=== PATIENT | female | born 1950 | race Caucasian/White ===

== ENCOUNTER 2016-12-24 07:30 | Inpatient (IN) | payer MEDICARE, BC ==
--- NOTE | 2016-12-18 11:08 | HP ---
PREOPERATIVE HISTORY AND PHYSICAL: DATE OF ADMISSION/SURGERY: 12/24/16 DATE OF OFFICE VISIT: 12/16/16 ATTENDING SURGEON: Dr. Edilson Mayer * (DICTATED BY STORMY HORTON) PROCEDURE: Right total shoulder reverse. CHIEF COMPLAINT: Right shoulder pain. HISTORY OF PRESENT ILLNESS: Dali is a 66-year-old female who presents to the clinic for right shoulder pain due to severe osteoarthritis. She has failed conservative measures and states that it limits her activity and she has consistent pain. Therefore, she has agreed to undergo a right total shoulder reverse with Dr. Mayer on 12/24/16. PAST MEDICAL HISTORY: Hypertension, asthma, GERD, depression, anxiety, Zaragoza' s esophagus and high cholesterol. PAST SURGICAL HISTORY: Ovarian cystectomy, cholecystectomy, right wrist surgery , right shoulder surgery. Denies prior complications with anesthesia. MEDICATIONS: 1. Celebrex 100 mg 1 tab by mouth twice a day as needed. 2. Losartan potassium 50 mg 1 by mouth daily. 3. Atorvastatin calcium 10 mg 1 by mouth daily. 4. Montelukast sodium 10 mg 1 by mouth daily. 5. Lansoprazole 30 mg 1 by mouth daily. 6. Dulera 200/5 mcg/act daily. 7. QNASL 80 mcg/act daily. 8. EpiPen 2-Nura 0.3 mg/0.3 mL use as directed. 9. ProAir HFA 108/90 mcg/act 2 puffs by mouth every 4 hours as needed. 10. Zantac 150 mg take 1 by mouth twice a day as needed. 11. Probiotic 1 by mouth daily. 12. Calcium, zinc and B12 daily. ALLERGIES: KEFLEX and HYOSCYAMINE. FAMILY HISTORY: Positive for sister with asthma and father with heart disease. Denies family history of DVT or PE. SOCIAL HISTORY: She lives with her spouse. She is retired. She is a former smoker and quit in 1982. She reports occasional alcohol consumption. REVIEW OF SYSTEMS: A 14-point review of systems was reviewed with the patient. Positive for current complaint, GERD and hypertension. Otherwise, negative. Denies chest pain or shortness of breath. Denies fever or chills. Denies history of bleeding disorders. Denies history of DVT or PE. PHYSICAL EXAMINATION GENERAL: Well-developed, well-nourished 66-year-old female, in no acute distress. Alert and oriented x3. Appropriate mood and affect. VITAL SIGNS: Height 62, weight 133, pulse 82, blood pressure 132/77, respiratory rate 14, temperature 97.5, BMI 24.3. HEENT: Normocephalic, atraumatic. PERRLA. Throat: Clear. NECK: Supple. LUNGS: Clear to auscultation bilaterally. No wheezing, rhonchi, or rales. CARDIO: Regular rate and rhythm. S1, S2. No murmurs, gallops, or rubs. No edema. ABDOMEN: Positive bowel sounds, soft, and nontender. NEURO: Alert and oriented x3. Cranial nerves grossly intact. Sensation is intact to light touch. MUSCULOSKELETAL: Right upper extremity, skin is intact. No warmth or erythema. Tenderness above the anterior joint line. Forward flexion is 70, abduction 80, passive forward flexion 140, external rotation is at 30 degrees, internal rotation to lateral hip. Weakness with rotator cuff testing. +2 radial pulse. Sensation is intact to light touch distally. DIAGNOSTIC STUDIES: Multi-view x-rays of the right shoulder revealed mild osteoarthritis with significant superior migration of the humeral head. IMPRESSION: Right shoulder osteoarthritis with rotator cuff arthropathy. PLAN: Dali is a 66-year-old female who is scheduled to undergo a right total shoulder reverse with Dr. Mayer on 12/24/16. She will return to the office 10 to 14 days postop for followup and suture removal. Percocet was sent to the patient's pharmacy for postop pain management. STORMY HORTON [id number]/[facility] #: [id number] MTDAnel
--- NOTE | 2017-01-16 11:32 | HP ---
AMENDED REPORT NOW INCLUDES COSIGNER DESIGNATION - ESIGNED BEFORE ADJUSTMENT PREOPERATIVE HISTORY AND PHYSICAL UPDATE: DATE OF SURGERY: 01/21/17. ATTENDING SURGEON: Edilson Mayer MD * (DICTATED BY STORMY HORTON) PROCEDURE: Right total shoulder reverse. CHIEF COMPLAINT: Right shoulder pain. HISTORY OF PRESENT ILLNESS: Dali is a 66-year-old female who presents to the clinic for right shoulder pain due to severe osteoarthritis. She failed conservative measures and therefore agreed to undergo a right total shoulder reverse with Dr. Mayer on 01/21/17. She was previously scheduled on December 24, 2016; however, her surgery for was cancelled due to an illness. She has recently seen her PCP and has been cleared for surgery. She is feeling well now , denies fever, chills. PAST MEDICAL HISTORY: Hypertension, asthma, GERD, depression, anxiety, Zaragoza' s esophagus, high cholesterol. PAST SURGICAL HISTORY: Ovarian cystectomy, cholecystectomy, right wrist surgery , right shoulder surgery. Denies denies prior complication with anesthesia. MEDICATIONS: 1. Losartan potassium 50 mg 1 by mouth daily. 2. Atorvastatin calcium 10 mg 1 by mouth daily. 3. Montelukast sodium 10 mg 1 by mouth daily. 4. Lansoprazole 30 mg 1 by mouth daily. 5. Dulera 200/5 mcg/act 1 puff daily. 6. QNASL 80 mcg/act daily. 7. EpiPen 2-Nura 0.3 mg/0.3 mL use as directed. 8. ProAir HFA 108 mcg/act 2 puffs every 4 hours as needed. 9. Zantac 150 one by mouth twice a day as needed. 10. Probiotic 1 by mouth every day. 11. Calcium 1 by mouth daily. 12. Zinc 1 by mouth daily. 13. Vitamin B12 one by mouth daily. 14. Lexapro 100 mg 1 by mouth twice a day. ALLERGIES: KEFLEX, HYOSCYAMINE, clams. FAMILY HISTORY: Positive for asthma, heart disease. Denies family history of DVT or PE. SOCIAL HISTORY: She lives with her spouse. She is retired. She is a former smoker, quit in 1982. She reports occasional alcohol consumption. REVIEW OF SYSTEMS: A 14-point review of systems was reviewed with the patient. Positive for current complaint. Otherwise negative. Denies fever, chill, night sweat, chest pain, shortness of breath. Denies history of bleeding disorder. Denies history of DVT or PE. PHYSICAL EXAMINATION GENERAL: A 66-year-old well-developed, well-nourished female in no acute distress. Alert and oriented x3 with appropriate mood and affect. VITAL SIGNS: Height 62, weight 135, pulse 78, blood pressure 118/72, respiratory rate 14, temperature 98.5, BMI 24.7. HEENT: Normocephalic, atraumatic. PERRLA. NECK: Supple. Throat clear. PULMONARY: Lungs clear to auscultation bilaterally. No wheezing, rhonchi or rales. CARDIO: Regular rate and rhythm, S1 and S2. No murmurs, gallops or rubs. No edema. ABDOMEN: Positive bowel sounds, soft, nontender. NEUROLOGIC: Alert and oriented x3. Cranial nerves are grossly intact. Sensation is intact to light touch. MUSCULOSKELETAL: Right upper extremity, skin is intact. No warmth or erythema. Tenderness over the anterior joint line. Forward flexion 70, abduction 80, passive forward flexion 140, external rotation to 30, internal rotation to the lateral hip. Weakness with rotator cuff testing. +2 radial pulse. Sensation is intact to light touch distally. DIAGNOSTIC STUDIES: Multi-view x-rays of the right shoulder revealed mild osteoarthritis with superior migration of the humeral head. CT was also done that revealed the same thing. IMPRESSION: Right shoulder osteoarthritis with rotator cuff arthropathy. PLAN: Dali is a 66-year-old female who is scheduled to undergo a right total shoulder reverse with Dr. Mayer on 01/21/17. She has had a recent illness and therefore, had to cancel surgery before, but has been cleared by her PCP. Her CT of the shoulder revealed a chest mass. Her PCP states she is stable for surgery and he will order further imaging after surgery to further investigate the chest mass. She will return to the office in 10 to 14 days postop to follow up for suture removal. Percocet was sent to the patient's pharmacy for postop pain. STORMY HORTON [id number]/[facility] #: [id number] [facility]ENTER[facility]el
[2017-01-20] MEDS ORDERED: Buffered Lidocaine 0.9% SYRIN* 5 ML/SYR SYRINGE INTRADERM ONE (14:54)
[2017-01-21] MEDS ORDERED: Famotidine IV* 10 MG/ML 2 ML (20 mg) IV ONE (06:00)
[2017-01-21] MEDS ORDERED: Gabapentin CAP(*) 300 MG PO ONE (06:00)
[2017-01-21] MEDS ORDERED: Buffered Lidocaine 0.9% SYRIN* 5 ML/SYR SYRINGE ONE (06:08)
[2017-01-21] MEDS ORDERED: Gabapentin CAP(*) 300 MG ONE (06:08)
[2017-01-21] MEDS ORDERED: Clindamycin 900 MG IVPREMIX(* 900 MG/50 ML SDV IV ONE (06:08)
[2017-01-21] MEDS ORDERED: Famotidine IV* 10 MG/ML 2 ML (20 mg) ONE (06:08)
[2017-01-21] MEDS ORDERED: Lidocaine 2% PF * 5 ML VIAL ONE ×2 (07:18→08:23)
[2017-01-21] MEDS ORDERED: ROPIVACAINE 5 MG/ML 30 ML BTL (0.5%) ONE (07:18)
[2017-01-21] MEDS ORDERED: Ketorolac INJ* 30 MG/ML 1 ML VIAL ONE (08:23)
[2017-01-21] MEDS ORDERED: Propofol* 10 MG/ML 20 ML BTL IV PUSH ONE (08:23)
[2017-01-21] MEDS ORDERED: Ondansetron INJ* 2 MG/ML VIAL ONE (08:23)
[2017-01-21] MEDS ORDERED: Succinylcholine* 20 MG/ML 10 ML VIAL ONE (08:23)
[2017-01-21] MEDS ORDERED: DiMENhydriNATE IV* 50 MG/ML VIAL ONE (08:23)
[2017-01-21] MEDS ORDERED: Dexamethasone IV* 4 MG/ML 1 ML (4 MG) ONE (08:23)
[2017-01-21] MEDS ORDERED: EPHEDrine (Pressors)* 50 MG/ML VIAL ONE (08:32)
[2017-01-21] MEDS ORDERED: Phenylephrine IV* 40 MCG/ML 10 ML SYRINGE ONE (08:32)
[2017-01-21] MEDS ORDERED: Rocuronium* 10 MG/ML VIAL ONE (09:13)
[2017-01-21] MEDS ORDERED: DiMENhydriNATE IV* 50 MG/ML VIAL IV PUSH PRN (09:23)
[2017-01-21] MEDS ORDERED: Gabapentin CAP(*) 100 MG PO ONE (09:24)
[2017-01-21] MEDS ORDERED: Polyethylene Glycol 3350* 17 GM PACKET PO PRN (10:18)
[2017-01-21] MEDS ORDERED: Bisacodyl SUPP* 10 MG SUPP PR PRN (10:18)
[2017-01-21] MEDS ORDERED: Ondansetron TAB* 4 MG PO PRN (10:18)
[2017-01-21] MEDS ORDERED: Ondansetron INJ* 2 MG/ML VIAL IV PRN (10:18)
[2017-01-21] MEDS ORDERED: Morphine INJ* 2 MG/ML 1 ML SYRINGE (TWO MG - NEW SYRINGE VERSION) IV PRN (10:18)
[2017-01-21] MEDS ORDERED: oxyCODONE/Acetamin 5/325 MG* TAB PO PRN (10:18)
[2017-01-21] MEDS ORDERED: diPHENhydraMINE PO* 25 MG PO PRN (10:18)
[2017-01-21] MEDS ORDERED: Acetaminophen TAB* 325 MG PO PRN (10:18)
[2017-01-21] MEDS ORDERED: oxyCODONE TAB* 5 MG TAB PO PRN (10:18)
[2017-01-21] MEDS ORDERED: Magnesium Hydroxide LIQ* 30 ML UDC PO PRN (10:18)
[2017-01-21] MEDS ORDERED: diPHENhydraMINE IV* 50 MG/ML 1 ml VIAL (BENADRYL) IV PRN (10:18)
[2017-01-21] MEDS ORDERED: Temazepam CAP* 15 MG PO PRN (10:18)
[2017-01-21] MEDS ORDERED: Albuterol HFA INHALER* 8 gm MDI INH PRN (10:25)
[2017-01-21] MEDS ORDERED: Gabapentin CAP(*) 100 MG ONE (11:13)
[2017-01-21] MEDS: oxyCODONE/Acetamin 5/325 MG* TAB PO PRN ×4 (11:15→22:24)
[2017-01-21] MEDS: HYDROmorphone INJ* 1 MG/ML CARPUJECT SYRINGE IV PRN ×2 (11:19→11:28)
--- NOTE | 2017-01-21 11:39 | RAD ---
Indication: Postop RIGHT shoulder reverse glenohumeral joint prosthesis placement. Comparison: August 04, 2016 radiographs. Technique: Internal rotation AP, external rotation Grashey, scapular Y, axillary views RIGHT shoulder Report: Reverse glenohumeral joint prosthesis in place and located without evidence for periprosthetic fracture. Normal acromioclavicular joint alignment. Surgical drain at the glenohumeral joint. Overlying soft tissue edema and subcutaneous emphysema. IMPRESSION: Unremarkable immediate postop follow-up following RIGHT glenohumeral joint replacement.
--- NOTE | 2017-01-21 15:56 | OP ---
CC: Primary Care Physician, Mateusz Church MD * DATE OF OPERATION: 01/21/17 - ROOM #[id number] DATE OF : 52 SURGEON: Edilson Mayer MD ASSISTANTS: STORMY Ochoa, and STORMY Bee. ANESTHESIOLOGIST: Dr. Conrad. ANESTHESIA: General with interscalene block. PRE-OP DIAGNOSIS: Right shoulder rotator cuff arthropathy. POST-OP DIAGNOSIS: Right shoulder rotator cuff arthropathy. OPERATIVE PROCEDURE: 1. Right reverse shoulder arthroplasty. 2. Open biceps tenodesis. IMPLANTS USED: Diaz 36 mm glenosphere with SR base plate, size 14 stem with standard head and neck and a size 6 poly. COMPLICATIONS: None. ESTIMATED BLOOD LOSS: 150 cc. OUTPUT DRAINS: Intraarticular x1. INDICATIONS: Dali Ponce is a 66-year-old female who has had chronic rotator cuff tear arthropathy. She has failed conservative management. She has elected to proceed with operative treatment. Risks and benefits of surgery were discussed at length and included, but are not limited to bleeding, infection, damage to nerves, vessels, surrounding structures, wound nonhealing, persistent pain, need for surgery, scarring, stiffness, incomplete relief of symptoms and risks of anesthesia, as well as risk of fracture, dislocation and risk of DVT. After obtaining preoperative medical risk assessment, she has elected to proceed with surgery. DESCRIPTION OF PROCEDURE: The patient was greeted in the preoperative area by the attending surgeon. Correct extremity was marked and consent was confirmed. The patient then underwent interscalene nerve block by the anesthesiologist, after which she was brought back to the operating suite. She was placed in supine position on the operating table. She then underwent general anesthesia and endotracheal intubation, after which [facility] position with all bony prominences padded. She was well secured to the bed. The right shoulder was then prepped and draped in the usual sterile fashion beginning with chlorhexidine soap, scrub and alcohol wipe and a final prep of ChloraPrep. After appropriate surgical pause indicating side, site, procedure and administration of antibiotics, the deltopectoral incision was made sharply with 15- blade. Soft tissues were carefully dissected to expose the cephalic vein which was taken laterally with the deltoid. The deltopectoral interval was then exposed, trackers were used to expose clavipectoral fascia. The short head of the biceps was identified and the lateral border was excised and CA ligament was released. The soft tissue was carefully mobilized. The pec incision was identified and the proximal 1.5 cm were released. The biceps was identified and then using a nonabsorbable stitch, this was tenodesed to the pec tendon. The biceps was then tenotomized and followed along the groove proximally , the subscap was identified and released in subscap peel fashion. The #5 Ethibond suture was used to tack this with retraction and the subscap was fully released. The 3 sutures were ligated. The capsule and the neck were carefully exposed. The soft tissues were carefully elevated. The head was gently dislocated through the wound. There was grade 4 change to humeral head as well as evidence of a massive rotator cuff tear of supraspinatus tendon. The neck cut was free handed and was slightly steep. Attention was then directed to the glenoid. The humerus was pushed back into the wound and retractors were placed around the glenoid. Posterior retractor was placed. The subscap was identified. The superior middle glenohumeral ligaments were then released. The inferior glenohumeral ligament was released too. The subscap was carefully mobilized. The glenoid nerve retractor was then used to help retract and expose the anterior soft tissues. There were grade 4 changes to the glenoid. The anterior and posterior superior labrum were carefully removed using electrocautery device. The inferior labrum was carefully removed with tension on soft tissues to expose the neck with care to not provide any iatrogenic nerve injury. The Castro was used to remove any of the excess cartilage off the glenoid. Once this was done, the guidewire was placed inferiorly in the glenoid. The reamer was used to ream the glenoid. The SR drill bit was then used to drill the center peg. The final implant was chosen and impacted carefully into position. Once it was fully seated, 2 interlocking screws of the appropriate length were then drilled. The final 36 mm head was then impacted into position and secured with the set screw. Attention was then directed to the humerus. The humerus was brought through the wound again. The center canal finder was used, a size 14 was found to fit appropriately into the canal with excellent purchase. The trial to center the humeral reamer was then placed. The reamer was then used to ream the bone to help position for the inlay prosthesis. Once this was done, the final implant was assembled on the back table and packed it into position. The trial spacer was then used to trial the shoulder. The shoulder was then gently reduced and taken through range of motion, able to forward flex to about 155, abduct to 90, externally rotate to about 55 degrees. Appropriate amount of shuck was identified and there was no evidence of dislocation. It appeared to be a good fit. At this point, the final implant was chosen. The poly was impacted into position and reduced. The shoulder was taken through range of motion and found to be stable. The wounds were copiously irrigated with sterile saline. The subscap was closed in a horizontal mattress configuration using #5 Ethibond that were pre- drilled into the humerus. The wounds were copiously irrigated again. The deltopectoral incision was closed with #2 Ethibond and then the wounds were irrigated again. The skin was closed in layers with 2-0 Vicryl and 3-0 Monocryl. Sterile dressings, Cryo/ Cuff, and UltraSling were applied. She was awoken from anesthesia and transferred to the PACU in stable condition. POSTOPERATIVE PLAN: She will be nonweightbearing for 6 weeks. She will be admitted to the hospital for 24 hours of antibiotics. The drain will be discharged on postop day #1. She will start physical therapy, which is passive range of motion, with forward flexion and abduction to 90, external rotation to about 30 degrees. I will see the patient back in 10 to 14 days. DVT prophylaxis would be Lovenox while in house and then she will be discharged with nothing. [id number]/[facility] #: [id number] [facility]
[2017-01-21] MEDS: Clindamycin 600 MG IVPREMIX(* 600 MG/50 ML SDV IV SCH (17:03)
[2017-01-21] MEDS ORDERED: Atorvastatin* 10 MG TAB PO SCH (18:00)
[2017-01-21] MEDS: Mometasone/Formoter 200/5 MDI INH SCH (20:14)
[2017-01-21] MEDS ORDERED: Montelukast Sodium TAB* 10 MG PO SCH (21:00)
[2017-01-22] MEDS: Clindamycin 600 MG IVPREMIX(* 600 MG/50 ML SDV IV SCH ×2 (00:05→07:14)
[2017-01-22] MEDS: oxyCODONE/Acetamin 5/325 MG* TAB PO PRN ×3 (03:47→11:15)
[2017-01-22 06:31] LABS: Hematocrit 35 % (35-47); Hemoglobin 11.8 g/dl (12.0-16.0)
[2017-01-22 06:34] LABS: BUN/Creatinine Ratio 11.8 (8-20); EGFR African American 86.3 (>60); EGFR Non-African American 67.1 (>60); Potassium 4.3 mmol/L (3.5-5.0)
[2017-01-22 07:30] VITALS: BP 128/61
[2017-01-22] MEDS ORDERED: Omeprazole CAP* 20 MG PO SCH (07:30)
--- NOTE | 2017-01-22 08:53 | PN ---
Progress Note - Progress Note Date of Service: 01/22/17 SOAP: Subjective: []Patient seen at bedside. Her pain is well controlled. Denies CP, SOB, nausea, dizziness. Objective: []General: Well appearing, no acute distress. RUE: Drain pulled without complication and tip intact. Sensation intact throughout RUE. Flexion, extension, abduction and adduction of digits 1-5 intact. Brisk capillary refill distally. Vital Signs Temp 98.6 F 01/22/17 07:11 Pulse 78 01/22/17 07:11 Resp 18 01/22/17 11:15 BP 128/61 01/22/17 07:11 Pulse Ox 98 01/22/17 07:30 Intake & Output 01/21/17 01/22/17 01/22/17 18:59 06:59 18:59 Intake Total 2150 2545 1015 Output Total 225 750 400 Balance 1925 1795 615 Intake: IV Fluids 1500 980 659 LR 0 980 659 lr 1500 IVPB 55 116 ABX - CLINDAMYCIN 55 116 Oral 650 1510 240 Output: Hemovac Amount #1 250 Urine 225 500 400 Other: Estimated Void Medium # Bowel Movements 0 # Voids 1 Laboratory Last Values Hgb 11.8 g/dl (12.0-16.0) L 01/22/17 05:58 Hct 35 % (35-47) 01/22/17 05:58 Sodium 131 mmol/L (133-145) L 01/22/17 06:11 Potassium 4.3 mmol/L (3.5-5.0) 01/22/17 06:11 Chloride 99 mmol/L (101-111) L 01/22/17 06:11 Carbon Dioxide 26 mmol/L (22-32) 01/22/17 06:11 Anion Gap 6 mmol/L (2-11) 01/22/17 06:11 BUN 10 mg/dL (6-24) 01/22/17 06:11 Creatinine 0.85 mg/dL (0.51-0.95) 01/22/17 06:11 Est GFR ( Amer) 86.3 (>60) 01/22/17 06:11 Est GFR (Non-Af Amer) 67.1 (>60) 01/22/17 06:11 BUN/Creatinine Ratio 11.8 (8-20) 01/22/17 06:11 Glucose 116 mg/dL (70-100) H 01/22/17 06:11 Calcium 9.0 mg/dL (8.6-10.3) 01/22/17 06:11 Blood Type B Positive 01/21/17 06:25 Antibody Screen Negative 01/21/17 06:25 Assessment: []POD 1 s/p Right total shoulder 01/21 Dr. Mayer Plan: []NWB RUE. No active ROM Percocet for pain control, colace as a stool softener FU Dr Mayer 10-14 days outpatient, sooner with any concerns. DC today
[2017-01-22] MEDS ORDERED: Cyanocobalamin TAB* 500 MCG PO SCH (09:00)
[2017-01-22] MEDS ORDERED: Losartan TAB* 25 MG PO SCH (09:00)
[2017-01-22] MEDS ORDERED: CMC: Escitalopram (NF) 10 MG TAB PO SCH (09:00)
[2017-01-22] MEDS ORDERED: CARBOXYMETHYLCELLULOSE BOTH EYES SCH (09:00)
[2017-01-22] MEDS ORDERED: Cetirizine* 10 MG TAB PO SCH (09:00)
[2017-01-22] MEDS: Mometasone/Formoter 200/5 MDI INH SCH (09:32)
[2017-01-22] MEDS ORDERED: Enoxaparin(*) 30 MG/0.3 ML SYR SUBCUT SCH (12:00)
--- NOTE | 2017-01-24 02:01 | DS ---
DISCHARGE SUMMARY: DATE OF ADMISSION: 01/21/17 DATE OF DISCHARGE: 01/22/17 DATE OF SURGERY: 01/21/17 PROVIDER: Dr. Edilson Mayer * (DICTATED GY STORMY CROWLEY) ASSISTANTS: STORMY Ochoa; STORMY Bee. PREOPERATIVE DIAGNOSIS: Right shoulder rotator cuff arthropathy. OPERATIVE PROCEDURE: Right reverse shoulder arthroplasty, open biceps tendinosis. HISTORY: Ms. Ponce is a 66-year-old female who has had chronic rotator cuff tear arthropathy. She has failed conservative management. She had therefore elected to proceed with operative management. HOSPITAL COURSE: The patient was admitted to [facility] on . She underwent a right total shoulder arthroplasty reverse. She was brought to PACU after surgery and then transferred to the short stay surgical unit in stable condition. On her surgical day, she did have a brief run of tachycardia with heart rates into the one-teens and 120, which resolved later in the evening. The patient was entirely asymptomatic with no chest pain, shortness of breath, sensation of irregular beats or dizziness. Her heart rhythm was palpated per radial wrist to be regular. On postop day 1, the patient was seen at bedside. Her pain was well controlled. She is well appearing in no acute distress. Her drain was pulled without complication and the tip intact. Sensation was intact throughout the right upper extremity. Flexion, extension, abduction and adduction of digits 1 through 5 was intact. Brisk capillary refill distally of all 5 right digits. Labs, hemoglobin 11.8, hematocrit 35. Sodium was 131. Vital signs on day of discharge, temperature 98.6, pulse 78, respiratory rate 16, oxygen saturation 98, blood pressure 128/61. The patient was seen to be medically and orthopedically stable for discharge. DISCHARGE CONDITION: Stable. DISCHARGE MEDICATIONS: 1. Refresh Tears 1 drop both eyes daily. 2. B12 1000 mcg p.o. q.a.m. 3. Calcium plus D 1 tab p.o. q.p.m. 4. Lipitor 10 mg p.o. q.p.m. 5. Singulair 10 mg p.o. at bedtime. 6. Lactobacillus 1 cap p.o. q.a.m. 7. Lexapro 10 mg p.o. a.m. 8. ProAir RespiClick 1 puff inhaled q.4 hours p.r.n. 9. Epinephrine, EpiPen p.r.n. allergic reaction. 10. QNASL 80 mcg 1 spray both nares q.a.m. 11. Dulera 200/5 two puffs inhaled b.i.d. 12. Losartan 25 mg p.o. q.a.m. 13. Prevacid capsule 30 mg p.o. q.a.m. 14. Clarinex 5 mg tab q.a.m. 15. Percocet 5/325 one to two tabs p.o. q.4 hours p.r.n., max daily dose of 10. 16. Docusate 100 mg p.o. t.i.d. p.r.n. DISCHARGE INSTRUCTIONS: The patient is nonweightbearing right upper extremity. No active range of motion. She may continue elbow, wrist and hand pendulum as shown by Physical Therapy. Okay to shower after 01/24/17, but no bathing, swimming or submerging wound. Call orthopedic office for increased drainage, redness, increased pain or fever. Go to the emergency room with chest pain or shortness of breath. Regular diet. Continue to use stool softeners. Call office if no bowel motion within 48 hours. Return to office for followup with Dr. Mayer in 10 to 14 days. STORMY CROWLEY [id number]/[facility] #: [id number] [facility]
== END 2017-01-22 13:30 | disposition home or self-care (01) | DRG 483 ==
LOC: AA 01-21 06:10 → SSU 01-21 12:22
PROVIDERS: ADMIT Orthopaedic Surgery; ATTEND Orthopaedic Surgery
PROC: 0LS30ZZ Reposition Right Upper Arm Tendon, Open Approach (ICD-10-PCS; 2017-01-21)
PROC: 0RRJ00Z Replacement of Right Shoulder Joint with Reverse Ball and Socket Synthetic Substitute, Open Approach (ICD-10-PCS; principal; 2017-01-21 07:30)
DX: M19.011 Primary osteoarthritis, right shoulder (principal); M41.9 Scoliosis, unspecified; E78.00 Pure hypercholesterolemia, unspecified; F32.9 Major depressive disorder, single episode, unspecified; I10 Essential (primary) hypertension; J45.909 Unspecified asthma, uncomplicated; K21.9 Gastro-esophageal reflux disease without esophagitis; F41.9 Anxiety disorder, unspecified; K22.70 Barrett's esophagus without dysplasia; Z90.49 Acquired absence of other specified parts of digestive tract; Z88.8 Allergy status to other drugs, medicaments and biological substances; Z82.49 Family history of ischemic heart disease and other diseases of the circulatory system; Z82.5 Family history of asthma and other chronic lower respiratory diseases; Z87.891 Personal history of nicotine dependence; Z72.89 Other problems related to lifestyle; R00.0 Tachycardia, unspecified
CPT/HCPCS: 36415; 80048; 85014; 85018; 86850; 86900; 86901; 87070; 87205; 88304; 88311; A9270-GY; C1713; C1776; J0330; J1100; J1240; J1885; J2405; J2704; J2795